=== PATIENT | male | born 1955 | race American Indian/Alaskan Native ===

== ENCOUNTER 2018-11-17 13:52 | Outpatient (CLI) | payer MEDICARE, OTHER | END 2018-11-17 13:53 | disposition home or self-care (01) | LOC: C.RADIC 13:52 | DX: M19.90 Unspecified osteoarthritis, unspecified site (principal) ==

== ENCOUNTER 2019-02-25 12:16 | Outpatient (CLI) | payer MEDICARE, OTHER | END 2019-02-25 12:17 | disposition home or self-care (01) | LOC: C.MRIC 12:16 | DX: M54.17 Radiculopathy, lumbosacral region (principal) ==